=== PATIENT | female | born 1970 | race Caucasian/White ===

== ENCOUNTER 2021-08-20 16:54 | Emergency (ER) | payer BC, OTHER ==
[2021-08-20] MEDS ORDERED: Sodium Chloride 0.9% 10 ML Syringe FLUSH PRN (17:21)
[2021-08-20] MEDS ORDERED: Ondansetron 4 MG/2 ML SDV IVPUSH ONE (17:37)
--- NOTE | 2021-08-20 17:40 | EDM.PDOC ---
ED HPI GENERAL MEDICAL PROBLEM - General Chief Complaint: Abdominal Pain Stated Complaint: R SIDE ABD PAIN Time Seen by Provider: 08/20/21 17:20 Source of Information: Reports: Patient, RN Notes Reviewed History Limitations: Reports: No Limitations - History of Present Illness INITIAL COMMENTS - FREE TEXT/NARRATIVE: Patient is a 51-year-old female who presents to the ER for evaluation of her right lower quadrant abdominal pain. Patient states this started suddenly at around 2 PM this afternoon. 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 States that the pain has subsided at this time, and she is not having any fevers or chills, cough or shortness of breath or any sort of nausea/vomiting/diarrhea. States that her bowel movements are normal and regular for her. She went to the walk-in clinic for examination but they could not perform a CT so they sent her here for further evaluation. Both she and her are concerned about the possibility of appendicitis at this time. - Related Data Allergies Allergy/AdvReac Type Severity Reaction Status Date / Time No Known Allergies Allergy Verified 08/20/21 17:19 Home Meds: Home Meds Multivitamin 1 tab PO DAILY 08/20/21 [History] Ocrelizumab [Ocrevus] 1 infusion IV ASDIRECTED 08/20/21 [History] Omeprazole 20 mg PO DAILY 08/20/21 [History] Vitamin B Complex 1 tab PO DAILY 08/20/21 [History] Past Medical History Gastrointestinal History: Reports: GERD Genitourinary History: Reports: Urinary Incontinence STABLE HAND History: Reports: Neurological History: Reports: MS Psychiatric History: Reports: Anxiety, Depression - Past Surgical History HEENT Surgical History: Reports: Oral Surgery GI Surgical History: Reports: Cholecystectomy Female Surgical History: Reports: Section Social & Family History - Family History Family Medical History: No Pertinent Family History - Tobacco Use Tobacco Use Status *Q: Current Every Day Tobacco User Years of Tobacco use: 30 Packs/Tins Daily: 1 - Caffeine Use Caffeine Use: Reports: Coffee - Recreational Drug Use Recreational Drug Use: No ED ROS GENERAL - Review of Systems Review Of Systems: Comprehensive ROS is negative, except as noted in HPI. ED EXAM, GI/ABD - Physical Exam Exam: See Below Exam Limited By: No Limitations General Appearance: Alert, WD/WN, No Apparent Distress Respiratory/Chest: No Respiratory Distress, Lungs Clear, Normal Breath Sounds, No Accessory Muscle Use, Chest Non-Tender Cardiovascular: Normal Peripheral Pulses, Regular Rate, Rhythm, No Edema GI/Abdominal Exam: Normal Bowel Sounds, Soft, No Distention, No Mass, Tender (exquisite RLQ tenderness). No: Rebound Extremities: Normal Inspection, Normal Capillary Refill Neurological: Alert, Oriented, Normal Cognition, No Motor/Sensory Deficits Psychiatric: Normal Affect, Normal Mood Skin Exam: Warm, Dry, Intact, Normal Color, No Rash Course - Vital Signs Last Recorded V/S: Last Vital Signs Temp 97.2 F 08/20/21 17:15 Pulse 56 L 08/20/21 17:15 Resp 16 08/20/21 17:15 BP 154/83 H 08/20/21 17:15 Pulse Ox 99 08/20/21 17:15 - Orders/Labs/Meds Orders: Active Orders 24 hr Category Date Time Status Peripheral IV Care [RC] . DIRECTED Care 08/20/21 17:21 Active Sodium Chloride 0.9% [Saline Flush] Med 08/20/21 17:21 Active 10 ml FLUSH ASDIRECTED PRN Peripheral IV Insertion Adult [OM.PC] Stat Oth 08/20/21 17:21 Ordered Medication Orders Sodium Chloride (Sodium Chloride 0.9% 10 Ml Syringe) 10 ml FLUSH ASDIRECTED PRN PRN Reason: Keep Vein Open Last Admin: 08/20/21 17:55 Dose: 10 ml Documented by: [email or web address] Labs: Laboratory Tests 08/20/21 08/20/21 08/20/21 Range/Units 17:50 17:50 18:08 WBC 7.71 (3.98-10.04) K/mm3 RBC 5.10 (3.98-5.22) M/mm3 Hgb 15.3 (11.2-15.7) gm/dl Hct 44.3 (34.1-44.9) % MCV 86.9 (79.4-94.8) fl MCH 30.0 (25.6-32.2) pg MCHC 34.5 (32.2-35.5) g/dl RDW Std Deviation 44.0 (36.4-46.3) fL Plt Count 162 L (182-369) K/mm3 MPV 12.1 (9.4-12.3) fl Neut % (Auto) 67.2 (34.0-71.1) % Lymph % (Auto) 21.4 (19.3-51.7) % [place] % (Auto) 7.8 (4.7-12.5) % Eos % (Auto) 3.0 (0.7-5.8) Baso % (Auto) 0.5 (0.1-1.2) % Neut # (Auto) 5.18 (1.56-6.13) K/mm3 Lymph # (Auto) 1.65 (1.18-3.74) K/mm3 [place] # (Auto) 0.60 H (0.24-0.36) K/mm3 Eos # (Auto) 0.23 (0.04-0.36) K/mm3 Baso # (Auto) 0.04 (0.01-0.08) K/mm3 Sodium 146 H (136-145) mEq/L Potassium 3.6 (3.5-5.1) mEq/L Chloride 107 (98-107) mEq/L Carbon Dioxide 28 (21-32) mEq/L Anion Gap 14.6 (5-15) BUN 3 L (7-18) mg/dL Creatinine 0.9 (0.55-1.02) mg/dL Est Cr Clr Drug Dosing 80.87 mL/min Estimated GFR (MDRD) > 60 (>60) mL/min BUN/Creatinine Ratio 3.3 L (14-18) Glucose 89 (70-99) mg/dL Calcium 8.6 (8.5-10.1) mg/dL Total Bilirubin 0.3 (0.2-1.0) mg/dL AST 22 (15-37) U/L ALT 21 (14-59) U/L Alkaline Phosphatase 95 (46-116) U/L C-Reactive Protein <0.2 (<1.0) mg/dL Total Protein 6.7 (6.4-8.2) g/dl Albumin 3.8 (3.4-5.0) g/dl Globulin 2.9 gm/dL Albumin/Globulin Ratio 1.3 (1-2) Lipase 77 (73-393) U/L Urine Color Yellow (Yellow) Urine Appearance Clear (Clear) Urine pH 6.5 (5.0-8.0) Ur Specific R[place] 1.015 (1.005-1.030) Urine Protein Negative (Negative) Urine Glucose (UA) Negative (Negative) Urine Ketones Negative (Negative) Urine Occult Blood Negative (Negative) Urine Nitrite Negative (Negative) Urine Bilirubin Negative (Negative) Urine Urobilinogen 0.2 (0.2-1.0) Ur Leukocyte Esterase Negative (Negative) Urine RBC 0-5 (0-5) /hpf Urine WBC 0-5 (0-5) /hpf Ur Squamous Epith Cells 0-5 (0-5) /hpf Urine Bacteria Few (FEW) /hpf Urine Mucus Not seen (FEW) /hpf Meds: Medications Generic Name Dose Route Start Last Admin Trade Name Freq PRN Reason Stop Dose Admin Sodium Chloride 10 ml 08/20/21 17:21 08/20/21 17:55 Sodium Chloride 0.9% 10 Ml Syringe FLUSH 10 ml ASDIRECTED PRN Administration Keep Vein Open Discontinued Medications Generic Name Dose Route Start Last Admin Trade Name Freq PRN Reason Stop Dose Admin Diatrizoate Meglum/Diatrizoate Sod 90 ml 08/20/21 18:26 Diatrizoate Meglumine/Diatrizoate Sodium 37% 120 Ml Bottle PO 08/20/21 18:27 ONETIME ONE Iopamidol 100 ml 08/20/21 18:26 08/20/21 19:15 Iopamidol 612 Mg/Ml 100 Ml Bottle IVPUSH 08/20/21 18:27 100 ml ONETIME ONE Administration Ondansetron HCl 4 mg 08/20/21 17:37 08/20/21 17:54 Ondansetron 4 Mg/2 Ml Sdv IVPUSH 08/20/21 17:38 4 mg ONETIME ONE Administration Sodium Chloride 10 ml 08/20/21 18:26 08/20/21 19:15 Sodium Chloride 0.9% 10 Ml Syringe FLUSH 08/20/21 18:27 10 ml ONETIME ONE Administration - Re-Assessments/Exams Free Text/Narrative Re-Assessment/Exam: 08/20/21 17:40 Patient presents to the ER for evaluation of her right lower quadrant abdominal pain. We will go ahead and get some basic labs, and abdomen pelvis CT for further evaluation. 08/20/21 19:57 Laboratory evaluation is unremarkable, CT demonstrated the distal appendix larger than the proximal appendix, overall size within normal limits, no inflammatory change seen, difficult to exclude very early appendicitis if patient has correlating white count symptoms if these are not present this is likely normal variant. I did go over the findings with Dr. Love, and she believes that the patient could go home monitor and symptoms and come back if anything worsens. We do not have any sort of hospital beds for observation at this time. Patient does want to go home and will return to the ER if anything worsens. This would be fevers, chills, worsening pain. Dr. Love will follow up with her in clinic on Monday. Departure - Departure Time of Disposition: 19:58 Disposition: Home, Self-Care 01 Condition: Good Clinical Impression: RLQ abdominal pain - Discharge Information *PRESCRIPTION DRUG MONITORING PROGRAM REVIEWED*: No *COPY OF PRESCRIPTION DRUG MONITORING REPORT IN PATIENT KEYANA: No Instructions: Abdominal Pain, Adult, [id number] Referrals: Idalia Sherman, JOSE RAFAEL [Primary Care Provider] - Ivan-Tamara Del Cid MD [Physician] - 08/23/21 (poss early appendicitis f/u) Forms: ED Department Discharge, ED Return to Work/School Form Additional Instructions: You were evaluated in the ER today for your right lower quadrant abdominal pain. Work-up in the ER demonstrated normal laboratory evaluation, and your CT was concerning for possible very early appendicitis versus a normal variant in the size of your appendix. Your case was discussed with the general surgeon on- call, and you have elected to go home and monitor your symptoms and return to the ER if anything should worsen. Please be on the look out for any sort of fevers, increased pain, as use would be causes for concern to return immediately to the ER for more emergent management. Dr. Tamara Love stated that she would like to see you in clinic on Monday, please call [phone] and obtain an appointment with her clinic for further evaluation. She will be sent a copy of this note for ongoing management. Do not hesitate to return to the ER at any time if symptoms should change or worsen. Sepsis Event Note (ED) - Focused Exam Vital Signs: Vital Signs Temp Pulse Resp BP Pulse Ox 08/20/21 17:15 97.2 F 56 L 16 154/83 H 99 - My Orders Last 24 Hours: My Active Orders 08/20/21 17:21 Peripheral IV Care [RC] . DIRECTED Sodium Chloride 0.9% [Saline Flush] 10 ml FLUSH ASDIRECTED PRN Peripheral IV Insertion Adult [OM.PC] Stat - Assessment/Plan Last 24 Hours: My Active Orders 08/20/21 17:21 Peripheral IV Care [RC] . DIRECTED Sodium Chloride 0.9% [Saline Flush] 10 ml FLUSH ASDIRECTED PRN Peripheral IV Insertion Adult [OM.PC] Stat
[2021-08-20] MEDS ORDERED: Diatrizoate Meglumine/Diatrizoate Sodium 37% 120 ML Bottle PO ONE (18:26)
[2021-08-20] MEDS ORDERED: Sodium Chloride 0.9% 10 ML Syringe FLUSH ONE (18:26)
[2021-08-20] MEDS ORDERED: Iopamidol 612 MG/ML 100 ML Bottle IVPUSH ONE (18:26)
--- NOTE | 2021-08-20 19:42 | CT ---
CT abdomen and pelvis Technique: Multiple axial sections were obtained from above the dome of the diaphragm inferiorly through the pubic symphysis. Intravenous and oral contrast were utilized. Delayed images were also obtained through the bladder. Reconstructed coronal and sagittal images were obtained. Comparison: No prior abdominal or pelvic imaging is obtained. Findings: Linear densities are noted within both lung bases either due to scarring or atelectasis. Liver contains no focal parenchymal abnormality. Surgical clips are noted from prior cholecystectomy. Spleen size is normal. Adrenal glands show no nodule. Pancreas shows no discrete abnormality. Kidneys show symmetric contrast enhancement without hydronephrosis or mass. Abdominal aorta shows no aneurysm. No retroperitoneal adenopathy or mesenteric abnormalities are seen. No pelvic mass or adenopathy is seen. Distal portion of the appendix is larger than the proximal portion. Size of the appendix which is 7 mm is at the upper limits of normal. No significant inflammatory change is seen around the appendix. No free fluid or inflammatory change is seen. Delayed images show contrast within the bladder. Bone window settings were reviewed which show disc space narrowing at L5-S1. No acute osseous abnormality is seen. Impression: 1. Distal appendix is larger than the proximal appendix. Overall size is within normal limits. No inflammatory change is seen. Difficult to exclude very early appendicitis if patient has correlating white count and symptoms. If these are not present, this is likely a normal variant. 2. Slight atelectasis or scarring within both lung bases. 3. No other acute abnormality is seen on CT study of the abdomen and pelvis. Diagnostic code #3
== END 2021-08-20 20:10 | disposition home or self-care (01) ==
LOC: JD.ED 16:54
DX: R10.31 Right lower quadrant pain (principal); K21.9 Gastro-esophageal reflux disease without esophagitis; Z72.0 Tobacco use; Z79.899 Other long term (current) drug therapy
CPT/HCPCS: 36415; 74177; 80053; 81001; 83690; 85025; 86140; 96374; 99284; J2405; Q9963; Q9967